=== PATIENT | male | born 1990 | race Hispanic/Latino ===

== ENCOUNTER 2017-04-14 16:36 | Emergency (ER) | payer OTHER ==
[2017-04-14] MEDS ORDERED: Sodium Chloride 0.9% 1,000 ML IV ONE (16:53)
[2017-04-14] MEDS ORDERED: Sodium Chloride 0.9% 1,000 ML ONE (17:24)
[2017-04-14 17:26] LABS: BASO % 0.4 % (0.0-2.0); EOS # 0.2 K/uL (0.0-0.7); EOS % 2.5 % (0.0-4.0); HEMOGLOBIN 15.4 g/dL (12.0-18.0); LYMPH # 1.7 K/uL (1.0-4.3); LYMPH % 21.6 % (20.0-40.0); MEAN CELL VOLUME 89.9 fL (80.0-94.0); MEAN CORPUSCULAR HEMOGLOBIN 31.1 pg (27.0-31.0); MEAN CORPUSCULAR HGB CONC 34.6 g/dL (33.0-37.0); MEAN PLATELET VOLUME 8.4 fL (7.2-11.7); MONO # 1.2 K/uL (0.0-0.8); MONO % 15.9 % (0.0-10.0); NEUT # 4.6 K/uL (1.8-7.0); NEUT % 59.6 % (50.0-75.0); NRBC % 0.1 % (0.0-2.0); RBC 4.94 Mil/uL (4.40-5.90); RED CELL DISTRIBUTION WIDTH 12.8 % (11.5-14.5); WHITE BLOOD COUNT 7.7 K/uL (4.8-10.8)
[2017-04-14] MEDS ORDERED: Iohexol 300 100 ML IJ ONE (17:26)
--- NOTE | 2017-04-14 17:26 | C.PDOC ---
History Of Present Illness <Sheri Vasquez - Last Filed: 04/14/17 18:50> <Bipin Joseph - Last Filed: 04/14/17 20:31> 26 year old male presents to ED with complaints of left lower abdominal pain associated with multiple episodes of diarrhea that began last night. Patient states he noticed today bright blood in stool and went to urgent care. Patient was advised to come to ER for evaluation. Denies fever, nausea, vomiting, or other associated complaints. (Sheri Vasquez) History Per: Patient History/Exam Limitations: no limitations Onset/Duration Of Symptoms: Hrs Current Symptoms Are (Timing): Still Present Location Of Pain/Discomfort: LLQ Radiation Of Pain To:: None Quality Of Discomfort: Unable To Describe Associated Symptoms: Diarrhea. denies: Fever, Chills, Nausea, Vomiting Exacerbating Factors: None Alleviating Factors: None Last Bowel Movement: Today Recent travel outside of the [place]: No <Sheri Vasquez - Last Filed: 04/14/17 18:50> <Bipin Joseph - Last Filed: 04/14/17 20:31> Time Seen by Provider: 04/14/17 16:53 Chief Complaint (Nursing): Abdominal Pain Past Medical History Reviewed: Historical Data, Nursing Documentation, Vital Signs - Medical History PMH: No Chronic Diseases Other Surgeries: drainage of pilonidal abscess Family History: States: No Known Family Hx - Social History Hx Alcohol Use: Yes Hx Substance Use: No - Immunization History Hx Tetanus Toxoid Vaccination: No Hx Influenza Vaccination: No Hx Pneumococcal Vaccination: No <Sheri Vasquez - Last Filed: 04/14/17 18:50> Vital Signs: Last Vital Signs Temp 99.4 F 04/14/17 17:00 Pulse 92 H 04/14/17 17:00 Resp 20 04/14/17 17:00 BP 142/88 04/14/17 17:00 Pulse Ox 99 04/14/17 19:04 Review Of Systems Constitutional: Negative for: Fever, Chills Gastrointestinal: Positive for: Abdominal Pain (left lower quadrant ), Diarrhea. Negative for: Nausea, Vomiting Genitourinary: Negative for: Dysuria, Frequency Neurological: Negative for: Weakness, Numbness <Sheri Vasquez - Last Filed: 04/14/17 18:50> Physical Exam - Physical Exam Appears: Well, Non-toxic, No Acute Distress Skin: Normal Color, Warm, Dry Head: Atraumatic, Normacephalic Eye(s): bilateral: Normal Inspection, EOMI Oral Mucosa: Moist Neck: Normal ROM, Supple Chest: Symmetrical, No Tenderness Cardiovascular: Rhythm Regular Respiratory: Normal Breath Sounds, No Decreased Breath Sounds, No Rales, No Rhonchi, No Wheezing Gastrointestinal/Abdominal: Bowel Sounds (active), Soft, Tenderness (mild to left lower quadrant ), No Mass, No Distention, No Guarding Extremity: Bilateral: Atraumatic, Normal ROM Neurological/Psych: Oriented x3, Normal Speech Gait: Steady <Sheri Vasquez - Last Filed: 04/14/17 18:50> ED Course And Treatment - Laboratory Results Result Diagrams: 04/14/17 17:18 04/14/17 17:18 Lab Interpretation: No Acute Changes O2 Sat by Pulse Oximetry: 99 (RA) Pulse Ox Interpretation: Normal <Sheri Vasquez - Last Filed: 04/14/17 18:50> - Laboratory Results Result Diagrams: 04/14/17 17:18 04/14/17 17:18 - CT Scan/US CT abd/pelv. Other Rad Studies (CT/US): Read By Radiologist, Radiology Report Reviewed CT/US Interpretation: IMPRESSION: Enterocolitis Progress Note: Pt was signed out to me at 7pm by Dr. Moreno/JANES Vasquez to f/up CT abd/pelv. Pt feels much better. No abdominal pain or tenderness. Reassessment Condition: Improved <Bipin Joseph - Last Filed: 04/14/17 20:31> Medical Decision Making <Sheri Vasquez - Last Filed: 04/14/17 18:50> <Bipin Joseph E - Last Filed: 04/14/17 20:31> Medical Decision Making: Impression: LLQ abd pain and diarrhea. Ordered CT Abdomen & Pelvis, Labs, and urinalysis. Administered Pepcid and IV fluids. Progress: 1811 CBC and CMP results reviewed. No leukocytosis. CT and UA pending 1832 UA shows ketones, patient has IV NS infusing. Patient had CT, will await report 1899 Case signed out to Dr Joseph, pending CT (Sheri Vasquez) Disposition - Disposition Disposition Time: 19:00 - POA Present On Arrival: None <Sheri Vasquez - Last Filed: 04/14/17 18:50> Counseled Patient/Family Regarding: Studies Performed, Diagnosis, Need For Followup, Rx Given - Disposition Disposition Time: 20:24 <Bipin Joseph - Last Filed: 04/14/17 20:31> - Disposition Referrals: Yvon Lester MD [Staff Provider] - Disposition: HOME/ ROUTINE Condition: IMPROVED Additional Instructions: Drink plenty of fluids. Follow up with a GI doctor for further evaluation and treatment. Return to the ER if you develop high fever, abdominal pain that persists, not tolerating fluids, worsening of symptoms or if you have any other concerns. 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 - Scribe Statement The provider has reviewed the documentation as recorded by the Scribe <Sheri Vasquez - Last Filed: 04/14/17 18:50> <Bipin Joseph - Last Filed: 04/14/17 20:31> - Scribe Statement Erik Escalante All medical record entries made by the Scribe were at my direction and personally dictated by me. I have reviewed the chart and agree that the record accurately reflects my personal performance of the history, physical exam, medical decision making, and the department course for this patient. I have also personally directed, reviewed, and agree with the discharge instructions and disposition. (Sheri Vasquez) Physician Patient Turnover Patient Signed Over To: Bipin Joseph Handoff Comments: pending CT results, re-eval and dispo <Sheri Vasquez - Last Filed: 04/14/17 18:50>
[2017-04-14 17:36] LABS: ALB/GLOB RATIO 1.1 (1.0-2.1); ALBUMIN 4.5 g/dL (3.5-5.0); ALT/SGPT 25 U/L (21-72); AST/SGOT 20 U/L (17-59); BLOOD UREA NITROGEN 12 mg/dL (9-20); CALCIUM 10.1 mg/dl (8.6-10.4); GFR AFRICAN-AMERICAN > 60; GFR NON-AFRICAN AMERICAN > 60; LIPASE 82 U/L (23-300)
[2017-04-14 18:25] LABS: URINE BILIRUBIN NEGATIVE (NEGATIVE); URINE CLARITY Clear (Clear); URINE COLOR Yellow (YELLOW); URINE GLUCOSE (UA) NORMAL (Normal); URINE LEUKOCYTE ESTERASE NEG Leu/uL (Negative); URINE NITRATE NEGATIVE (NEGATIVE); URINE PROTEIN NEGATIVE (NEGATIVE); URINE UROBILINOGEN NORMAL mg/dL (0.2-1.0)
[2017-04-14 18:26] LABS: URINE BLOOD TRACE-INTACT (NEGATIVE)
--- NOTE | 2017-04-14 20:02 | CT ---
EXAM: CT Abdomen and Pelvis With Intravenous Contrast EXAM DATE/TIME: 04/14/2017 5:05 PM CLINICAL HISTORY: 26 years old, male; Pain; Abdominal pain; Flank; Left lower quadrant (llq); Additional info: Left lower abd pain w diarrhea TECHNIQUE: Axial computed tomography images of the abdomen and pelvis with intravenous contrast. All CT scans at this facility use one or more dose reduction techniques, viz.: automated exposure control; ma/kV adjustment per patient size (including targeted exams where dose is matched to indication; i.e. head); or iterative reconstruction technique. Coronal and sagittal reformatted images were created and reviewed. CONTRAST: 100 mL of OMNIPAQUE 300 administered intravenously. COMPARISON: There are no prior studies for comparison. FINDINGS: Lower thorax: Heart size is normal. Lung bases are clear. There is minimal scarring at the lung bases ABDOMEN: Liver: unremarkable Gallbladder and bile ducts: unremarkable Pancreas: unremarkable Spleen: unremarkable Adrenals: unremarkable Kidneys and ureters: unremarkable Stomach and bowel: Stomach is almost completely empty. Rotation is normal. There is mild duodenal fold prominence. There is minimal proximal jejunal fold thickening. There mildly abnormal small bowel loops in the midabdomen with mild wall enhancement. There is no small bowel obstruction. Terminal ileum is unremarkable. Appendix is unremarkable. Cecum is unremarkable. There is ascending colon transverse colon and descending colon wall thickening and enhancement. Inflammatory change decreases in the sigmoid. There is scattered sigmoid diverticulosis. Appendix: See stomach and bowel PELVIS: Bladder: unremarkable Reproductive: Seminal vesicles and prostate are unremarkable. ABDOMEN and PELVIS: Intraperitoneal space: There is no free air or free fluid. Bones/joints: There are no acute osseous abnormalities. Soft tissues: There is a small fat containing umbilical hernia. Vasculature: Vascular structures are unremarkable. Lymph nodes: There is shotty mesenteric adenopathy IMPRESSION: Enterocolitis
[2017-04-14 20:43] VITALS: BP 132/85; PULSE 88; RESP 16; TEMP 98.8; O2SAT 98
== END 2017-04-14 20:43 | disposition home or self-care (01) ==
LOC: C.ER 16:36
DX: K52.9 Noninfective gastroenteritis and colitis, unspecified (principal)
CPT/HCPCS: 74177; 80053; 81001; 83690; 85025; 96361; 96374; 99284; J7040; Q9967